=== PATIENT | male | born 1970 | race Caucasian/White ===

== ENCOUNTER → 2019-11-18 12:38 | Outpatient (CLI) | payer BC, SELFPAY ==
--- NOTE | ~2019-11-18 | US_ITS ---
US thyroid INDICATION: Hypothyroidism. TECHNIQUE: Real-time sonographic images of the thyroid gland were obtained. COMPARISON: No prior studies for comparison. FINDINGS: The right thyroid lobe measures 3.9 x 1.7 x 1.6 cm. The left thyroid lobe measures 4.5 x 2 .2 x 1.5 cm. There is heterogeneous echotexture and echogenicity throughout the thyroid gland. No dis crete nodules identified. Normal vascular flow is present. IMPRESSION: 1. Normal-sized heterogeneous thyroid gland without discrete mass. Reviewed, dictated and finalized at location A.
== END ==
PROVIDERS: PCP Internal Medicine; Visit Provider Internal Medicine
DX: E03.9 Hypothyroidism, unspecified (principal)
CPT/HCPCS: 76536